=== PATIENT | female | born 1970 | race American Indian/Alaskan Native ===

== ENCOUNTER 2018-07-02 10:13 | Outpatient (CLI) | payer OTHER ==
--- NOTE | 2018-07-02 21:59 | XRay Report ---
PROCEDURE: XR SPINE LUMBOSACRAL 2-3V TECHNIQUE: Lumbar spine radiographs, including AP, lateral, bilateral oblique, flexion, and extensio n views. HISTORY: DISABILITY EXAM COMPARISONS: None . FINDINGS: Alignment in neutral position: Normal . Vertebral body movement with flexion and extension: Physiologic . Vertebral body heights/Disk spaces: There is loss of disc height at L4-5 and L5-S1. . Fracture(s): There is bilateral facet hypertrophy at L4-5 and L5-S1. . Facets: Normal . Bone mineralization: Normal . IMPRESSION: There are no compression fractures. There are no malalignments. .There is loss of disc height at L4- 5 and L5-S1. . There is bilateral facet hypertrophy at L4-5 and L5-S1. . This document is electronically signed by Benson Dong MD., July 02 2018 09:56:47 PM ET
== END 2018-07-02 10:14 | disposition home or self-care (01) ==
LOC: XRAY 10:13
PROVIDERS: ATTEND Internal Medicine
DX: Z02.71 Encounter for disability determination (principal); M89.38 Hypertrophy of bone, other site
CPT/HCPCS: 72100